=== PATIENT | female | born 1995 | race African-American/Black ===

== ENCOUNTER 2018-07-06 14:10 | Emergency (ER) | payer OTHER ==
[2018-07-06 14:10] VITALS: BP 103/63
[~2018-07-06 14:10] MED LIST: ALBUTEROL INHAL17 GM IH; PREDNISONE50 MG PO; PROVENTIL; VENTOLIN HFA 1818 GM INH
== END 2018-07-06 15:27 | disposition home or self-care (01) ==
LOC: ER 14:10
DX: K42.9 Umbilical hernia without obstruction or gangrene (principal); R10.9 Unspecified abdominal pain; J45.909 Unspecified asthma, uncomplicated; Z88.0 Allergy status to penicillin